=== PATIENT | female | born 1960 | race Caucasian/White ===

== ENCOUNTER 2019-03-23 14:04 | Emergency (ER) | payer BC ==
[~2019-03-23] VITALS: Ht 177.8 cm; Wt 69.0 kg
[~2019-03-23 14:04] MED LIST: ACETAMINOPHEN-1 EAC1 PO; ACTEMRA80 MG/4 ML IV; ALEVE220 MG; ARAVA10 MG PO; CARISOPRODOL 3350 MG PO; CLONAZEPAM; DUONEB 2.5-0.5 M3 ML INH; FOLIC ACID1 MG PO; LIORESAL 10 MG10 MG PO; METHOTREXATE 22.5 M1 PO; METHOTREXATE 22.5 MG PO; NEBULIZER MISCELL; NORCO 5-325 TA1 EACH PO; PREDNISOLONE 5 M5 M1; PREDNISONE 10 M10 M1 PO; PREDNISONE 20 M20 MG PO; PREDNISONE5 G1; PREDNISONE50 MG PO; PROAIR HFA8.5 GM INH; SULFASALAZINE500 M1; TORADOL 10 MG T10 MG PO; ULTRAM50 MG PO; VENTOLIN HFA 1818 GM INH; XELJANZ5 MG PO; [UNRECOGNIZED DRUG - OTHER]
[2019-03-23] MEDS ORDERED: KEVZARA200 MG/1.2 SUBQ (14:14)
[2019-03-23] MEDS ORDERED: PLAVIX 75 MG TA75 M1 PO (14:15)
[2019-03-23 14:30] LABS: URINE BILIRUBIN NEGATIVE (Negative); URINE BLOOD NEGATIVE (Negative); URINE CLARITY CLEAR; URINE COLOR YELLOW; URINE GLUCOSE-RANDOM NEGATIVE (Negative); URINE KETONES NEGATIVE (Negative); URINE LEUKOCYTES-REFLEX NEGATIVE (Negative); URINE NITRITE-REFLEX NEGATIVE (Negative); URINE PROTEIN NEGATIVE (Negative); URINE UROBILINOGEN 0.2 E.U./dl (0.2-1.0)
[2019-03-23 14:53] VITALS: BP 125/67
== END 2019-03-23 14:55 | disposition home or self-care (01) ==
LOC: M.ERS 14:04
PROVIDERS: Physician Assistant
DX: G89.29 Other chronic pain (principal); M54.5 Low back pain; M06.9 Rheumatoid arthritis, unspecified; F17.210 Nicotine dependence, cigarettes, uncomplicated; Z88.8 Allergy status to other drugs, medicaments and biological substances; Z90.49 Acquired absence of other specified parts of digestive tract

== ENCOUNTER 2019-05-22 15:45 | Inpatient (IN) | payer BC ==
[~2019-05-22] VITALS: Ht 177.8 cm; Wt 72.1 kg
[~2019-05-22 15:45] MED LIST changes: -ARAVA10 MG PO; -CLONAZEPAM; +CLONAZEPAM 0.50.5 M1 PO; +KEVZARA200 MG/1.2 SUBQ; +PLAVIX 75 MG TA75 M1 PO
[2019-05-22 15:51] VITALS: BP 131/69
[2019-05-22] MEDS ORDERED: COZAAR 25 MG TA25 M2 PO (15:56)
[2019-05-22] MEDS ORDERED: NORVASC 2.5 MG2.5 M1 PO (15:56)
[2019-05-22] MEDS ORDERED: REMERON15 M2 PO (15:56)
[2019-05-22 16:22] LABS: ABSOLUTE BASOPHILS 0.1 thou/uL (0.0-0.2); ABSOLUTE EOSINOPHILS 0.1 thou/uL (0.0-0.7); ABSOLUTE LYMPHOCYTES 1.6 thou/uL (0.8-5.3); ABSOLUTE MONOCYTES 0.5 thou/uL (0.0-1.2); ABSOLUTE NEUTROPHILS 1.7 thou/uL (1.6-8.1); BASOPHILS 1.3 %; EOSINOPHILS 3.5 %; HEMATOCRIT 40.4 % (37.0-47.0); HEMOGLOBIN 13.9 gm/dL (12.0-15.0); LYMPHOCYTES 40.3 %; MCH 31.5 pg (26.0-34.0); MCHC 34.3 g/dL (28.0-37.0); MCV 91.9 fL (80.0-100.0); MONOCYTES 13.2 %; MPV 9.2 fl. (7.2-11.1); NUCLEATED RBCS 0 /100WBC; PLATELET COUNT* 166 thou/uL (150-400); POLYS 41.7 %; RDW-CV 16.4 % (10.5-14.5)
[2019-05-22 16:37] LABS: CALCIUM 8.9 mg/dL (8.5-10.1); CREATININE 1.1 mg/dL (0.6-1.3); POTASSIUM 4.2 mmol/L (3.5-5.1)
[2019-05-22 16:42] LABS: ALBUMIN 3.5 g/dL (3.4-5.0); TOTAL BILIRUBIN 0.4 mg/dL (<0.1-1.0); TOTAL PROTEIN 6.4 g/dL (6.4-8.2)
[2019-05-22 19:02] VITALS: BP 125/85
[2019-05-22 19:33] LABS: HEMATOCRIT 40.7 % (37.0-47.0); HEMOGLOBIN 13.7 gm/dL (12.0-15.0); MCH 31.1 pg (26.0-34.0); MCHC 33.6 g/dL (28.0-37.0); MCV 92.5 fL (80.0-100.0); RBC 4.4 mil/uL (4.20-5.00); RDW-CV 16.5 % (10.5-14.5); WBC 4.2 thou/uL (4.0-11.0)
--- NOTE | 2019-05-22 20:00 | NUR ---
PT ADMITTED TO ROOM AT 1900. RECEIVED REPORT. NO ACUTE DISTRESS. VOIDING IN BR, NO RECTAL BLEEDING AT PRESENT. TELEMETRY APPLIED SHOWING SR. REVIEWED HOME MEDS. SEE ADMISSION ASSESSMENT AND HX. WILL CONT TO MONITOR AND ASSIST NEEDED.
[2019-05-22 20:30] VITALS: BP 114/60
[2019-05-22] MEDS ORDERED: NORCO 10-325 T1 EACH PO (21:39)
[2019-05-22] MEDS ORDERED: [UNRECOGNIZED DRUG - OTHER] PO (22:20)
[2019-05-22] MEDS ORDERED: TUMS200 MG PO (22:22)
[2019-05-23] VITALS (7 sets, daily range): BP systolic 95–120; BP diastolic 55–77
[2019-05-23 04:43] LABS: HEMATOCRIT 38.3 % (37.0-47.0); HEMOGLOBIN 12.8 gm/dL (12.0-15.0); MCH 30.9 pg (26.0-34.0); MCHC 33.5 g/dL (28.0-37.0); MCV 92.3 fL (80.0-100.0); MPV 8.9 fl. (7.2-11.1); RBC 4.15 mil/uL (4.20-5.00); RDW-CV 16.5 % (10.5-14.5); WBC 3.5 thou/uL (4.0-11.0)
[2019-05-23 04:48] LABS: CALCIUM 8.4 mg/dL (8.5-10.1); MAGNESIUM 1.8 mg/dL (1.8-2.4); POTASSIUM 3.6 mmol/L (3.5-5.1)
--- NOTE | 2019-05-23 07:16 | NUR ---
AWAKE ALL NIGHT. C/O ANXIETY AND CHRONIC BACK PAIN. PO MEDS GIVEN BUT ALSO WANTING HOME MUSCLE RELAXANT, NOT ORDERED. NO STOOLS THIS SHIFT. NPO SINCE [place] FOR POSS TEST TODAY. TELEMETRY SHOWING SR. IV RESTARTED PER PT REQUEST. HS GOAL OF SAFETY ACHIEVED. HOURLY ROUNDING OBSERVED.
--- NOTE | 2019-05-23 14:51 | NUR ---
Pt is A&O. Resides at home with her . Independent. No DME. No hx of HH or SNF. [place]. Following.
[2019-05-23] MEDS ORDERED: PREDNISONE 20 M20 M1 PO (15:08)
[2019-05-23] MEDS ORDERED: ARAVA10 MG PO (16:24)
--- NOTE | 2019-05-23 16:46 | NUR ---
ASSUMED PT CARE AT 0730. ASSESSMENT COMPLETED CHARTED. ABLE TO MAKE NEEDS KNOWN. FAMILY AT BEDSIDE. GI CALLED ABOUT WHEN TO VISIT PT, NEVER DID. DISCHARGE APPROVED, PT WAITING AT ROOM DOOR WAITING TO LEAVE AND FOR DISCHARGE PAPERWORK TO BE FINISHED. IV AND MONITOR REMOVED. UP AD MARTHA IN ROOM. DISCHARGE PAPERWORK WENT OVER, NO COMMENTS, QUESTIONS, OR CONCERNS NOTED FROM DISCHARGE. PT LEFT WITH ALL BELONGINGS WITH NUTRITION REPRESENTATIVE AROUND 1645 TO HUSBANDS CAR.
== END 2019-05-23 16:40 | disposition home or self-care (01) | DRG 392 ==
LOC: M.ERS 15:45 → M.TBA-ER 17:24 → M.2W 17:24
PROVIDERS: Emergency Medicine Emergency Medical Services; ADMIT Internal Medicine
DX: K52.9 Noninfective gastroenteritis and colitis, unspecified (principal); K92.1 Melena; M06.9 Rheumatoid arthritis, unspecified; G89.29 Other chronic pain; F17.210 Nicotine dependence, cigarettes, uncomplicated; M54.9 Dorsalgia, unspecified; Z88.8 Allergy status to other drugs, medicaments and biological substances; Z90.49 Acquired absence of other specified parts of digestive tract

== ENCOUNTER 2019-06-23 03:50 | Emergency (ER) | payer BC ==
[~2019-06-23] VITALS: Ht 177.8 cm; Wt 73.5 kg
[~2019-06-23 03:50] MED LIST changes: +ARAVA10 MG PO; +COZAAR 25 MG TA25 M2 PO; +NORCO 10-325 T1 EACH PO; +NORVASC 2.5 MG2.5 M1 PO; +PREDNISONE 20 M20 M1 PO; +REMERON15 M2 PO; +TUMS200 MG PO; +[UNRECOGNIZED DRUG - OTHER] PO
[2019-06-23] MEDS ORDERED: TORADOL 10 MG T10 MG PO (04:55)
[2019-06-23] MEDS ORDERED: NORFLEX100 MG PO (04:55)
[2019-06-23 05:05] VITALS: BP 158/64
== END 2019-06-23 05:06 | disposition home or self-care (01) ==
LOC: M.ERS 03:50
DX: M62.830 Muscle spasm of back (principal); M06.9 Rheumatoid arthritis, unspecified; G89.29 Other chronic pain; M54.9 Dorsalgia, unspecified; F17.210 Nicotine dependence, cigarettes, uncomplicated; Z90.49 Acquired absence of other specified parts of digestive tract; Z90.721 Acquired absence of ovaries, unilateral; Z88.8 Allergy status to other drugs, medicaments and biological substances

== ENCOUNTER 2020-02-18 12:50 | Emergency (ER) | payer BC ==
[~2020-02-18] VITALS: Ht 177.8 cm; Wt 74.8 kg
[~2020-02-18 12:50] MED LIST changes: +NORFLEX100 MG PO
[2020-02-18 13:01] VITALS: BP 139/70
[2020-02-18] MEDS ORDERED: PERCOCET 5-3251 EACH PO (13:18)
== END 2020-02-18 13:31 | disposition home or self-care (01) ==
LOC: M.ERS 12:50
DX: M54.5 Low back pain (principal); M54.6 Pain in thoracic spine; G89.29 Other chronic pain; M06.9 Rheumatoid arthritis, unspecified; F17.210 Nicotine dependence, cigarettes, uncomplicated; Z88.8 Allergy status to other drugs, medicaments and biological substances; Z90.49 Acquired absence of other specified parts of digestive tract

== ENCOUNTER 2020-12-30 17:23 | Emergency (ER) | payer BC ==
[~2020-12-30] VITALS: Ht 177.8 cm; Wt 78.0 kg
[~2020-12-30 17:23] MED LIST changes: +PERCOCET 5-3251 EACH PO
[2020-12-30 17:36] VITALS: BP 152/78
== END 2020-12-30 18:01 | disposition home or self-care (01) ==
LOC: M.ERS 17:23
DX: G89.29 Other chronic pain (principal); M54.5 Low back pain; F17.210 Nicotine dependence, cigarettes, uncomplicated; Z88.8 Allergy status to other drugs, medicaments and biological substances; M06.9 Rheumatoid arthritis, unspecified; Z90.49 Acquired absence of other specified parts of digestive tract

== ENCOUNTER 2021-02-07 17:29 | Emergency (ER) | payer BC ==
[~2021-02-07] VITALS: Ht 177.8 cm; Wt 77.1 kg
[2021-02-07] MEDS ORDERED: RINVOQ ER15 MG PO (17:36)
[2021-02-07] MEDS ORDERED: ELIQUIS5 M1 PO (18:59)
[2021-02-07 19:10] VITALS: BP 127/70
== END 2021-02-07 19:10 | disposition home or self-care (01) ==
LOC: M.ERS 17:29
DX: I82.492 Acute embolism and thrombosis of other specified deep vein of left lower extremity (principal); M06.9 Rheumatoid arthritis, unspecified; F17.210 Nicotine dependence, cigarettes, uncomplicated; Z90.49 Acquired absence of other specified parts of digestive tract; Z88.8 Allergy status to other drugs, medicaments and biological substances

== ENCOUNTER 2021-08-28 11:11 | Inpatient (IN) | payer OTHER ==
[~2021-08-28] VITALS: Ht 177.8 cm; Wt 70.8 kg
--- NOTE | ~2021-08-28 | PROC ---
[address] [id number] PROCEDURE REPORT Name: SABA RODRIGUEZ Room: [address] IN ..#: [id number] Admission: 08/28/21 Attend Phys: Tessie Irene MD Discharge: Date of : 56 Report #: [id number] THIS REPORT FOR: cc: Lyle Johansen MD, Matthew W. MD [facility],Medical Records Staff ~ For GI report, please see the Provation report in Per[employer] content. By: [id number] Records Staff [facility] /[facility]
[~2021-08-28 11:11] MED LIST changes: +ELIQUIS5 M1 PO; +RINVOQ ER15 MG PO
[2021-08-28 11:20] VITALS: BP 146/84
[2021-08-28 11:30] LABS: URINE BLOOD NEGATIVE (Negative); URINE CLARITY CLEAR; URINE COLOR YELLOW; URINE GLUCOSE-RANDOM TRACE (Negative); URINE KETONES TRACE (Negative); URINE LEUKOCYTES NEGATIVE (Negative); URINE NITRITE POSITIVE (Negative); URINE PROTEIN TRACE (Negative); URINE SPECIFIC GRAVITY >= 1.030 (1.005-1.030)
[2021-08-28 11:37] LABS: ICTOTEST (BILI CONFIRMATORY) Negative (Negative); URINE BILIRUBIN 2+ (Negative)
[2021-08-28 12:08] LABS: BACTERIA 1-9 Few /HPF (None Seen); CRYSTALS None Seen /LPF (None Seen); HYALINE CASTS 4-10 Moderate /LPF (None Seen); SQUAMOUS 4-10 Moderate /LPF (0-3); URINE RBC 0-2 Rare /HPF (0-2); URINE WBC 0-5 Rare /HPF (0-5)
[2021-08-28 12:10] LABS: ABSOLUTE EOSINOPHILS 0.2 thou/uL (0.0-0.7); ABSOLUTE LYMPHOCYTES 1.7 thou/uL (0.8-5.3); ABSOLUTE NEUTROPHILS 3.3 thou/uL (1.6-8.1); BASOPHILS 0.2 %; HEMOGLOBIN 13.7 gm/dL (12.0-15.0); LYMPHOCYTES 32.9 %; MCH 31.7 pg (26.0-34.0); MCHC 33.5 g/dL (28.0-37.0); MCV 94.6 fL (80.0-100.0); MONOCYTES 0.7 %; MPV 8.2 fl. (7.2-11.1); NUCLEATED RBCS 0 /100WBC; PLATELET COUNT* 82 thou/uL (150-400); POLYS 62.2 %; RBC 4.34 mil/uL (4.20-5.00); RDW-CV 15.7 % (10.5-14.5); WBC 5.2 thou/uL (4.0-11.0)
[2021-08-28 12:16] LABS: CALCIUM 9.7 mg/dL (8.5-10.1); CREATININE 1.1 mg/dL (0.6-1.3); POTASSIUM 4.1 mmol/L (3.5-5.1)
[2021-08-28 12:20] LABS: ALBUMIN 3.1 g/dL (3.4-5.0); MAGNESIUM 1.9 mg/dL (1.8-2.4); TOTAL BILIRUBIN 1.4 mg/dL (<0.1-1.0); TOTAL PROTEIN 6.8 g/dL (6.4-8.2)
[2021-08-28 14:41] VITALS: BP 121/70
[2021-08-28 21:00] VITALS: BP 114/87
[2021-08-29 00:40] VITALS: BP 101/42
[2021-08-29 04:01] VITALS: BP 159/85
[2021-08-29 04:38] LABS: HEMATOCRIT 37.5 % (37.0-47.0); HEMOGLOBIN 12.3 gm/dL (12.0-15.0); MCHC 32.9 g/dL (28.0-37.0); MCV 97.3 fL (80.0-100.0); MPV 8.3 fl. (7.2-11.1); RBC 3.86 mil/uL (4.20-5.00); RDW-CV 16.3 % (10.5-14.5); WBC 6.7 thou/uL (4.0-11.0)
[2021-08-29 05:13] LABS: ALBUMIN 2.7 g/dL (3.4-5.0); MAGNESIUM 1.8 mg/dL (1.8-2.4); POTASSIUM 4.2 mmol/L (3.5-5.1); TOTAL BILIRUBIN 1.1 mg/dL (<0.1-1.0); TOTAL PROTEIN 6.3 g/dL (6.4-8.2)
[2021-08-29 07:45] VITALS: BP 137/49
[2021-08-29 11:30] VITALS: BP 104/53
[2021-08-29 16:30] VITALS: BP 95/47
[2021-08-29 20:00] VITALS: BP 111/47
[2021-08-30 00:21] VITALS: BP 100/56
[2021-08-30 04:57] VITALS: BP 132/51
[2021-08-30 07:53] VITALS: BP 127/52
[2021-08-30 11:40] LABS: ABSOLUTE EOSINOPHILS 0.1 thou/uL (0.0-0.7); ABSOLUTE LYMPHOCYTES 1.4 thou/uL (0.8-5.3); ABSOLUTE MONOCYTES 0.1 thou/uL (0.0-1.2); ABSOLUTE NEUTROPHILS 1.6 thou/uL (1.6-8.1); BASOPHILS 0.2 %; EOSINOPHILS 4.7 %; LYMPHOCYTES 44.2 %; MCH 32.6 pg (26.0-34.0); MCHC 33.3 g/dL (28.0-37.0); MCV 97.8 fL (80.0-100.0); MONOCYTES 1.9 %; MPV 8.6 fl. (7.2-11.1); NUCLEATED RBCS 0 /100WBC; RBC 3.17 mil/uL (4.20-5.00); RDW-CV 15.7 % (10.5-14.5); WBC 3.2 thou/uL (4.0-11.0)
[2021-08-30 11:43] VITALS: BP 131/59
[2021-08-30 11:59] LABS: HEMOGLOBIN 10.3 gm/dL (12.0-15.0)
[2021-08-30 12:04] LABS: PLATELET COUNT* 15 thou/uL (150-400)
[2021-08-30 17:00] VITALS: BP 122/53
[2021-08-30 17:09] LABS: ABSOLUTE EOSINOPHILS 0.1 thou/uL (0.0-0.7); ABSOLUTE LYMPHOCYTES 1.1 thou/uL (0.8-5.3); ABSOLUTE MONOCYTES 0.1 thou/uL (0.0-1.2); ABSOLUTE NEUTROPHILS 0.9 thou/uL (1.6-8.1); BASOPHILS 0.4 %; HEMATOCRIT 30.3 % (37.0-47.0); HEMOGLOBIN 9.9 gm/dL (12.0-15.0); LYMPHOCYTES 51.3 %; MCH 31.8 pg (26.0-34.0); MCHC 32.6 g/dL (28.0-37.0); MCV 97.8 fL (80.0-100.0); MONOCYTES 2.7 %; MPV 8.1 fl. (7.2-11.1); NUCLEATED RBCS 0 /100WBC; POLYS 39.6 %; WBC 2.2 thou/uL (4.0-11.0)
[2021-08-30 17:12] LABS: PLATELET COUNT* 11 thou/uL (150-400)
[2021-08-30 23:25] VITALS: BP 140/54
[2021-08-31 03:35] VITALS: BP 121/52; BP 129/42
[2021-08-31 04:20] VITALS: BP 129/42
[2021-08-31 08:29] VITALS: BP 128/43
[2021-08-31 11:17] LABS: HEMOGLOBIN 9.6 gm/dL (12.0-15.0); MCH 31.7 pg (26.0-34.0); NUCLEATED RBCS 0 /100WBC; RBC 3.02 mil/uL (4.20-5.00)
[2021-08-31 11:19] LABS: HEMATOCRIT 29.4 % (37.0-47.0); MCHC 32.6 g/dL (28.0-37.0); MCV 97.3 fL (80.0-100.0); MPV 8.7 fl. (7.2-11.1); RDW-CV 15.8 % (10.5-14.5)
[2021-08-31 11:22] LABS: CALCIUM 9.1 mg/dL (8.5-10.1); CREATININE 0.9 mg/dL (0.6-1.3); POTASSIUM 4.1 mmol/L (3.5-5.1)
[2021-08-31 11:27] LABS: ALBUMIN 2.4 g/dL (3.4-5.0)
[2021-08-31 12:00] VITALS: BP 110/70
[2021-08-31 12:08] LABS: PLATELET COUNT* 44 thou/uL (150-400)
[2021-08-31 12:10] LABS: WBC 1.9 thou/uL (4.0-11.0)
[2021-08-31 12:11] LABS: ABSOLUTE MONOCYTES 0.1 thou/uL (0.0-1.2)
[2021-08-31 12:30] LABS: ABSOLUTE NEUTROPHILS 0.6 thou/uL (1.6-8.1)
[2021-08-31 12:31] LABS: ABSOLUTE EOSINOPHILS 0.1 thou/uL (0.0-0.7); ABSOLUTE LYMPHOCYTES 1.1 thou/uL (0.8-5.3); ANISOCYTOSIS 1+; PLATELET ESTIMATE DECREASED; POLYCHROMASIA 1+
[2021-08-31 12:32] LABS: POIKILOCYTOSIS 1+
[2021-08-31 16:30] VITALS: BP 120/48
[2021-09-01 00:31] VITALS: BP 141/58
[2021-09-01 04:00] VITALS: BP 136/67
[2021-09-01 07:07] LABS: HEMOGLOBIN 9.8 g/dL (11.1-15.9)
[2021-09-01 07:32] LABS: ABSOLUTE EOSINOPHILS 0.3 thou/uL (0.0-0.7); ABSOLUTE LYMPHOCYTES 0.8 thou/uL (0.8-5.3); ABSOLUTE MONOCYTES 0.3 thou/uL (0.0-1.2); ABSOLUTE NEUTROPHILS 0.3 thou/uL (1.6-8.1); BASOPHILS 0.8 %; EOSINOPHILS 17.1 %; HEMATOCRIT 29.9 % (37.0-47.0); HEMOGLOBIN 9.7 gm/dL (12.0-15.0); LYMPHOCYTES 45.2 %; MCH 31.3 pg (26.0-34.0); MCHC 32.3 g/dL (28.0-37.0); MCV 96.8 fL (80.0-100.0); MONOCYTES 18.3 %; MPV 9.5 fl. (7.2-11.1); NUCLEATED RBCS 0 /100WBC; PLATELET COUNT* 51 thou/uL (150-400); POLYS 18.6 %; RBC 3.09 mil/uL (4.20-5.00)
[2021-09-01 07:35] LABS: WBC 1.8 thou/uL (4.0-11.0)
[2021-09-01 07:40] LABS: ALBUMIN 2.3 g/dL (3.4-5.0); CALCIUM 9.2 mg/dL (8.5-10.1); CREATININE 0.8 mg/dL (0.6-1.3); POTASSIUM 3.5 mmol/L (3.5-5.1); TOTAL BILIRUBIN 0.9 mg/dL (<0.1-1.0)
[2021-09-01 07:50] VITALS: BP 134/53
[2021-09-01 12:00] VITALS: BP 120/60
[2021-09-01 16:09] VITALS: BP 132/56
[2021-09-01 20:00] VITALS: BP 121/58
[2021-09-02] VITALS: BP 118/55
[2021-09-02 03:47] LABS: ABSOLUTE EOSINOPHILS 0.4 thou/uL (0.0-0.7); ABSOLUTE LYMPHOCYTES 1.2 thou/uL (0.8-5.3); ABSOLUTE MONOCYTES 0.7 thou/uL (0.0-1.2); ABSOLUTE NEUTROPHILS 0.5 thou/uL (1.6-8.1); BASOPHILS 0.5 %; HEMOGLOBIN 9.9 gm/dL (12.0-15.0); WBC 2.8 thou/uL (4.0-11.0)
[2021-09-02 03:50] LABS: EOSINOPHILS 14.2 %; HEMATOCRIT 30.5 % (37.0-47.0); LYMPHOCYTES 42.6 %; MCH 31.4 pg (26.0-34.0); MCHC 32.4 g/dL (28.0-37.0); MCV 97.1 fL (80.0-100.0); MONOCYTES 24.5 %; MPV 9.8 fl. (7.2-11.1); NUCLEATED RBCS 0 /100WBC; PLATELET COUNT* 69 thou/uL (150-400); POLYS 18.2 %; RBC 3.14 mil/uL (4.20-5.00); RDW-CV 16.3 % (10.5-14.5)
[2021-09-02 03:54] VITALS: BP 107/39
[2021-09-02 04:01] LABS: PREALBUMIN 9.6 mg/dL (18.0-35.7)
[2021-09-02 04:13] LABS: ALBUMIN 2.2 g/dL (3.4-5.0); CALCIUM 9.2 mg/dL (8.5-10.1); CREATININE 0.8 mg/dL (0.6-1.3); POTASSIUM 3.2 mmol/L (3.5-5.1); TOTAL BILIRUBIN 0.6 mg/dL (<0.1-1.0); TOTAL PROTEIN 5.8 g/dL (6.4-8.2)
[2021-09-02 07:15] VITALS: BP 102/40
[2021-09-02 15:47] VITALS: BP 141/78
[2021-09-03] VITALS: BP 128/61
[2021-09-03 05:31] LABS: HEMATOCRIT 30.6 % (37.0-47.0); HEMOGLOBIN 9.8 gm/dL (12.0-15.0); MCH 31.3 pg (26.0-34.0); MCHC 32.1 g/dL (28.0-37.0); MCV 97.3 fL (80.0-100.0); MPV 10.7 fl. (7.2-11.1); NUCLEATED RBCS 0 /100WBC; PLATELET COUNT* 134 thou/uL (150-400); RBC 3.15 mil/uL (4.20-5.00); RDW-CV 16.2 % (10.5-14.5); WBC 9.7 thou/uL (4.0-11.0)
[2021-09-03 05:58] LABS: ALBUMIN 2.2 g/dL (3.4-5.0); CALCIUM 9.7 mg/dL (8.5-10.1); CREATININE 0.9 mg/dL (0.6-1.3); TOTAL BILIRUBIN 0.5 mg/dL (<0.1-1.0); TOTAL PROTEIN 5.6 g/dL (6.4-8.2)
[2021-09-03 08:00] VITALS: BP 123/52
[2021-09-03 08:29] LABS: ABSOLUTE BASOPHILS 0.5 thou/uL (0.0-0.2); ABSOLUTE EOSINOPHILS 0.4 thou/uL (0.0-0.7); ABSOLUTE LYMPHOCYTES 3.2 thou/uL (0.8-5.3); ABSOLUTE MONOCYTES 1.1 thou/uL (0.0-1.2); ABSOLUTE NEUTROPHILS 4.6 thou/uL (1.6-8.1); ATYPICAL LYMPHS 2 %; METAMYELOCYTES 7 %; MYELOCYTES 7 %; PROMYELOCYTES 2 %
[2021-09-03 08:30] LABS: HYPOCHROMASIA 1+; PLATELET ESTIMATE DECREASED; POLYCHROMASIA 1+
[2021-09-03 12:40] VITALS: BP 144/79
[2021-09-03 15:40] VITALS: BP 144/79
[2021-09-03 16:15] LABS: ABSOLUTE BASOPHILS 0.1 thou/uL (0.0-0.2); ABSOLUTE EOSINOPHILS 0.7 thou/uL (0.0-0.7); ABSOLUTE LYMPHOCYTES 3.1 thou/uL (0.8-5.3); ABSOLUTE MONOCYTES 2.5 thou/uL (0.0-1.2); ABSOLUTE NEUTROPHILS 14.7 thou/uL (1.6-8.1); BASOPHILS 0.3 %; EOSINOPHILS 3.3 %; HEMATOCRIT 30.4 % (37.0-47.0); HEMOGLOBIN 9.8 gm/dL (12.0-15.0); LYMPHOCYTES 14.7 %; MCHC 32.3 g/dL (28.0-37.0); MCV 96.2 fL (80.0-100.0); MONOCYTES 11.7 %; MPV 9.6 fl. (7.2-11.1); NUCLEATED RBCS 0 /100WBC; PLATELET COUNT* 170 thou/uL (150-400); RBC 3.16 mil/uL (4.20-5.00); RDW-CV 16.3 % (10.5-14.5)
[2021-09-03 16:42] VITALS: BP 104/46
[2021-09-03 20:00] VITALS: BP 105/61
[2021-09-04 05:59] VITALS: BP 111/61
[2021-09-04 10:31] VITALS: BP 111/61
[2021-09-04] MEDS ORDERED: DIFLUCAN200 MG PO (10:35)
[2021-09-04] MEDS ORDERED: NYSTATIN100000 UNI SW&SWALLOW (10:36)
== END 2021-09-04 12:04 | disposition home health service (06) | DRG 368 ==
LOC: M.ERS 11:11 → M.2W 13:01 → M.TBA-ER 13:01 → M.2W 14:52 → M.ORTHSURG 20:05 → M.2W 09-01 14:57
PROVIDERS: Internal Medicine; Internal Medicine Hematology & Oncology; Nurse Practitioner Family; Physician Assistant; ADMIT Internal Medicine; ATTEND Internal Medicine
PROC: 0DJ08ZZ Inspection of Upper Intestinal Tract, Via Natural or Artificial Opening Endoscopic (ICD-10-PCS; principal; 2021-08-28)
PROC: 30233R1 Transfusion of Nonautologous Platelets into Peripheral Vein, Percutaneous Approach (ICD-10-PCS; 2021-08-31)
DX: B37.81 Candidal esophagitis (principal); U07.1 COVID-19; B37.0 Candidal stomatitis; B37.3 Candidiasis of vulva and vagina; K12.30 Oral mucositis (ulcerative), unspecified; M54.9 Dorsalgia, unspecified; M06.9 Rheumatoid arthritis, unspecified; G89.29 Other chronic pain; F17.210 Nicotine dependence, cigarettes, uncomplicated; J43.9 Emphysema, unspecified; E04.1 Nontoxic single thyroid nodule; R13.10 Dysphagia, unspecified; K21.00 Gastro-esophageal reflux disease with esophagitis, without bleeding; K44.9 Diaphragmatic hernia without obstruction or gangrene; Z90.49 Acquired absence of other specified parts of digestive tract; Z88.8 Allergy status to other drugs, medicaments and biological substances